=== PATIENT | female | born 1965 ===

== ENCOUNTER 2020-10-09 09:00 | Inpatient (IN) | payer OTHER ==
[~2020-10-09] VITALS: Ht 154.9 cm; Wt 57.6 kg
[2020-10-16] MEDS ORDERED: COLACE100 MG PO (07:51)
[2020-10-16] MEDS ORDERED: MEDROLPACK PO (07:51)
[2020-10-16] MEDS ORDERED: AMOX-CLAV 875-1 EACH PO (07:51)
[2020-10-16] MEDS ORDERED: PERCOCET 5-3251 EACH PO (07:51)
[2020-10-16] MEDS ORDERED: NEURONTIN800 MG PO (07:51)
[2020-10-16] MEDS ORDERED: CLONAZEPAM1 MG PO (07:51)
[2020-10-16] MEDS ORDERED: AMITRIPTYLINE H50 MG (08:09)
[2020-10-16] MEDS ORDERED: VENLAFAXINE HCL75 M1 (08:09)
== END 2020-10-17 13:10 | disposition home or self-care (01) | DRG 460 ==
LOC: SURH 10-16 05:00 → O/R 10-16 05:00 → SURH 10-16 07:00
PROVIDERS: ADMIT Orthopaedic Surgery Orthopaedic Surgery of the Spine; ATTEND Orthopaedic Surgery Orthopaedic Surgery of the Spine
PROC: 0SB20ZZ Excision of Lumbar Vertebral Disc, Open Approach (ICD-10-PCS; 2020-10-16)
PROC: 3E0U0GB Introduction of Recombinant Bone Morphogenetic Protein into Joints, Open Approach (ICD-10-PCS; 2020-10-16)
PROC: 0SG00J1 Fusion of Lumbar Vertebral Joint with Synthetic Substitute, Posterior Approach, Posterior Column, Open Approach (ICD-10-PCS; principal; 2020-10-16 07:00)
DX: M43.16 Spondylolisthesis, lumbar region (principal); M54.16 Radiculopathy, lumbar region; M48.062 Spinal stenosis, lumbar region with neurogenic claudication